=== PATIENT | female | born 2000 | race Two or more races ===

== ENCOUNTER 2024-07-15 18:58 | Emergency (ER) | payer OTHER ==
[~2024-07-15] VITALS: Ht 165.1 cm; Wt 99.0 kg
[2024-07-15 20:18] VITALS: BP 112/58; PULSE 136; RESP 20; O2SAT 96
--- NOTE | 2024-07-15 21:00 | ED.PDOC ---
[employer]ICE [employer]ER HPI Comments 24 year old female came to ER for flu like symptoms. Patient is a , about 27 weeks . States she has been having flu like symptoms since last night, with fever, chills, myalgia and weakness. Denies any vaginal bleeding Chief Complaint: Flu like Time Seen by MD: 20:59 Reviewed Notes: Nurses Notes Allergies: Coded Allergies: NO KNOWN ALLERGIES (Unverified , 07/15/24) Information Source: Patient Mode of Arrival: Ambulatory Timing: Hours Prehospital treatment: None Associated Signs and Symptoms: Other (flu like symptoms, congestion, cough, malaise. 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 Hx 3 Para 1 LMP 01/03/2024 Family History Family History: Reviewed,noncontributory to illness Social History Smoker: Non-Smoker Alcohol: Denies ETOH Use Drugs: Denies Drug Use Lives In: Home Constitutional: reports: chills, fatigue, fever, malaise, weakness; denies: diaphoresis, sweats, others EENTM: denies: blurred vision, double vision, ear bleeding, ear discharge, ear drainage, ear pain, ear ringing, eye pain, eye redness, hearing loss, mouth pain, mouth swelling, nasal discharge, nose bleeding, nose congestion, nose pain, photophobia, tearing, throat pain, throat swelling, voice changes, others Respiratory: denies: cough, hemoptysis, orthopnea, SOB at rest, shortness of breath, SOB with excertion, stridor, wheezing, others Cardiovascular: denies: chest pain, dizzy spells, diaphoresis, Dyspnea on exertion, edema, irregular heart beat, left arm pain, lightheadedness, palpitations, PND, syncope, others Gastrointestinal: denies: abdomen distended, abdominal pain, blood streaked bowels, constipated, diarrhea, dysphagia, difficulty swallowing, hematemesis, melena, nausea, poor appetite, poor fluid intake, rectal bleeding, rectal pain, vomiting, others Genitourinary: denies: abnormal vagina bleeding, burning, dyspareunia, dysuria, flank pain, frequency, hematuria, incontinence, pain, , vagina discharge, urgency, others Neurological: denies: dizziness, fainting, headache, left sided numbness, left sided weakness, numbness, paresthesia, pre-existing deficit, right sided numbness, right sided weakness, seizure, speech problems, tingling, tremors, weakness, others Musculoskeletal: denies: back pain, gout, joint pain, joint swelling, muscle pain, muscle stiffness, neck pain, others Integumetry: denies: bruises, change in color, change in hair/nails, dryness, laceration, lesions, lumps, rash, wounds, others Allergic/Immunocompromised: denies: Difficulty Healing, Frequent Infections, Hives, Itching, others Hematologic/Lymphatic: denies: anemia, blood clots, easy bleeding, easy bruising, swollen glands, others Endocrine: denies: excessive hunger, excessive sweating, excessive thirst, excessive urination, flushing, intolerance to cold, intolerance to heat, unexplained weight gain, unexplained weight loss, others Psychiatric: denies: anxiety, bipolar disorder, depression, hopeless, panic disorder, schizophrenia, sleepless, suicidal, others Physical Exam General Appearance: No Apparent Distress, Normal HEENT: Normal ENT Inspection, Pharynx Normal, TMs Normal Neck: Full Range of Motion, Non-Tender, Normal, Normal Inspection Respiratory: Chest Non-Tender, Lungs Clear, No Accessory Muscle Use, No Respiratory Distress, Normal Breath Sounds Cardiovascular: No Edema, No JVD, No Murmur, No Gallop, Normal Peripheral Pulses, Regular Rate/Rhythm Breast Exam: Deferred Gastrointestinal: No Organomegaly, Non Tender, No Pulsatile Mass, Normal Bowel Sounds, Soft Genitalia: Deferred Pelvic: Deferred Rectal: Deferred Extremities: No calf tenderness, Normal capillary refill, Normal inspection, Normal range of motion, Non-tender, No pedal edema Musculoskeletal : Apperance: Normal Neurologic: Alert, head of research & insights II-XII nml as Tested, No Motor Deficits, Normal Affect, Normal Mood, No Sensory Deficits Cerebellar Function: Normal Reflexes: Normal Skin: Dry, Normal Color, Warm Lymphatic: No Adenopathy Was a procedure done? Was a procedure done?: No Differential Diagnosis (GLOBAL MARKETING SPECIALIST) Vaginal Discharge: Comments Viral syndrome, Influenza, COVID 19 X-Ray, Labs, Meds, VS Vital Signs Date Time Temp Pulse Resp B/P (MAP) Pulse Ox O2 Delivery O2 Flow Rate FiO2 07/15/24 20:18 99.2 136 20 112/58 (76) 96 Time of 1ST Reevaluation: 20:56 Reevaluation 1ST: Unchanged Patient Education/Counseling: Diagnosis, Treatment Family Education/Counseling: No Family Present Critical Care Note Critical Care Time?: No Stability Stability form required: No Heart Score Heart Score: Heart Score Response (Comments) Value History N/A 0 EKG N/A 0 Age N/A 0 Risk Factors N/A 0 Troponin N/A 0 Total 0 I personally scribed for ROSEMARIE NEFF RESIDENT ([email or web address]) on 07/15/24 at 21:00. Electronically submitted by Markus Vargas ([email or web address]). ROSEMARIE NEFF RESIDENT Jul 15, 2024 21:00
[2024-07-15 21:33] VITALS: TEMP 99
[2024-07-15] MEDS: ACETAMINOPHEN 325 MG TAB PO ONE ×2 (21:33→21:37)
[2024-07-15] MEDS: ceFAZolin 2 GM/D5W50ml 50 ML IV ONE (21:34)
[2024-07-15] MEDS: LACTATED RINGER'S 1,000 ML IV ONE (21:35)
[2024-07-15] MEDS: LACTATED RINGER'S 1,000 ML IV SCH (23:22)
--- NOTE | 2024-07-16 07:09 | DVHDS2 ---
Physician Discharge Progress N Final Diagnosis: abd pain,n/v,fever,uri Operations or Procedures: Operations or Procedures nst,ivf Condition on Discharge: Good Disposition: Home Discharge Instructions: Diet: Regular Activity: No Restrictions, As Tolerated Follow Up/Referral: Keep appointments with OBGYN Medications: Take all prescribed medications as directed,z pack called in Follow Up Care: Specialist: 3d Discharge Statement: "Patient was advised to return to the ER or call 911 if any headaches, dizziness, shortness of breath, chest pain, abdominal pain, bleeding, fevers, or worsening of medical condition. Patient was counseled about treatment plan, medications, possible side effects, patientverbalized understanding. All questions were answered to the best of my ability. This discharge took greater then 30 minutes in planning, reviewing documentation , counseling the patient, and discussing with other team members." ISAAC BABB DO Jul 16, 2024 07:09
== END 2024-07-16 00:28 | disposition home or self-care (01) ==
LOC: ER 18:58 → LDRP 20:23
PROVIDERS: ADMIT Obstetrics & Gynecology; ATTEND Obstetrics & Gynecology
DX: O99.512 Diseases of the respiratory system complicating pregnancy, second trimester (principal); J06.9 Acute upper respiratory infection, unspecified; O21.9 Vomiting of pregnancy, unspecified; O26.892 Other specified pregnancy related conditions, second trimester; R50.9 Fever, unspecified; R10.9 Unspecified abdominal pain; Z3A.27 27 weeks gestation of pregnancy; Z79.899 Other long term (current) drug therapy
CPT/HCPCS: 59025; 81002; 94760; 96361; 96365; 99284; G0378; J0690; 96360

== ENCOUNTER 2025-02-21 17:09 | Emergency (ER) | payer OTHER ==
[~2025-02-21] VITALS: Ht 165.1 cm; Wt 98.0 kg
[2025-02-21] MEDS ORDERED: ACET500T58 PO (20:31)
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
[2025-02-21] MEDS: ACETAMINOPHEN 325 MG TAB PO ONE (20:39)
[2025-02-21 20:42] VITALS: BP 134/77; TEMP 97.9
--- NOTE | 2025-02-21 20:52 | DVH ---
EXAM: CT CERVICAL WITHOUT CONTRAST HISTORY: neck pain COMPARISON: None CTDIvol 22 mGy, DLP 1446 mGy*cm. TECHNIQUE: Multiple axial CT images of the spine were obtained using bone algorithm. Axial and coronado l reformatting was done. Bone and soft tissue windows were reviewed. FINDINGS: No vertebral fracture or compression deformity. Straightening of normal lordotic curvature without l isthesis. The craniocervical junction is normally aligned. No significant degenerative changes. No acute finding of the imaged intracranial contents, neck soft tissues, or upper chest. IMPRESSION: 1. No acute finding of the cervical spine.
--- NOTE | 2025-02-21 20:54 | DVH ---
EXAM: CT HEAD WITHOUT CONTRAST INDICATION: headache TECHNIQUE: CT of the head without intravenous contrast. Radiation Dose : 1. Head: CT Dose: CTDI volume is 58.14 mGy. Dose-length product is 930.16 mGy*cm The dose indicators for CT are the volume Computed Tomography (CT) Dose Index (CTDIvol) and the Dose Length Product (DLP), and are measured in units of mGy and mGy-cm, respectively. These indicators are not patient dose, but values generated from the CT scanner acquisition factors. The report includes radiation exposure data for exposures received during this examination. COMPARISON: None FINDINGS: Brain: No acute hemorrhage, mass effect, or cerebral edema. CSF Spaces: Size and morphology within normal limits. Bones/Soft Tissues: No acute findings. Orbits/Sinuses/Mastoids: Unremarkable as visualized. IMPRESSION: 1. No acute intracranial abnormality. Radiation optimization: All CT scans at this facility use at least one of these dose optimization elieser hniques: automated exposure control mA and/or kV adjustment per patient size (includes targeted exam s where dose is matched to clinical indication) or iterative reconstruction.
--- NOTE | 2025-02-21 21:00 | DVH ---
EXAM: XY L SHOULDER 2+ VIEW XRAY INDICATION: Pain left shoulder pain TECHNIQUE: 3 views of the left shoulder COMPARISON: None available at the time of dictation. FINDINGS/IMPRESSION: No radiographic evidence of an acute osseous abnormality. There is no acute fracture, osseous malalig nment, or aggressive focal osseous lesion. There is no radiographically apparent joint space soheilain pranav
--- NOTE | 2025-02-21 21:00 | DVH ---
EXAM: XY L HIP COMPLETE XRAY INDICATION: left hip pain TECHNIQUE: Frontal radiographs of the hip and pelvis and frog-leg lateral view left hip COMPARISON: None FINDINGS/IMPRESSION: No radiographic evidence of an acute fracture, osseous malalignment, or aggressive osseous lesion. N o radiographic evidence of significant hip joint space loss. Symmetric sacroiliac joints. Normal pu bic symphyseal joint.
[2025-02-21 21:07] VITALS: PULSE 107; RESP 18; O2SAT 100
== END 2025-02-21 21:28 | disposition home or self-care (01) ==
LOC: ER 17:09
DX: O99.891 Other specified diseases and conditions complicating pregnancy (principal); S16.1XXA Strain of muscle, fascia and tendon at neck level, initial encounter; S46.912A Strain of unspecified muscle, fascia and tendon at shoulder and upper arm level, left arm, initial encounter; S40.012A Contusion of left shoulder, initial encounter; S70.02XA Contusion of left hip, initial encounter; Z3A.01 Less than 8 weeks gestation of pregnancy; V89.2XXA Person injured in unspecified motor-vehicle accident, traffic, initial encounter; Y93.I9 Activity, other involving external motion; Y92.488 Other paved roadways as the place of occurrence of the external cause; Y99.8 Other external cause status
CPT/HCPCS: 70450; 72125; 73030; 73502